=== PATIENT | female | born 1990 | race Caucasian/White ===

== ENCOUNTER 2019-09-10 15:35 | Emergency (ER) | payer MEDICAID, OTHER ==
[~2019-09-10] VITALS: Ht 154.9 cm; Wt 51.0 kg
[2019-09-10 16:18] LABS: BASOPHILS # (AUTO) 0.1 X10'3 (0-0.2); BASOPHILS % (AUTO) 0.7 % (0-1); EOSINOPHILS # (AUTO) 0.2 X10'3 (0-0.9); EOSINOPHILS % (AUTO) 2.1 % (0-6); HEMATOCRIT 43.7 % (35.0-45.0); HEMOGLOBIN 14.5 g/dl (12.0-16.0); LYMPHOCYTES # (AUTO) 1.5 X10'3 (1.1-4.8); LYMPHOCYTES % (AUTO) 19.8 % (21-51); MEAN CORPUSCULAR HGB CONC 33.2 g/dL (33.0-36.5); MEAN CORPUSCULAR VOLUME 84.4 FL (78-98); MONOCYTES # (AUTO) 0.9 X10'3 (0-0.9); MONOCYTES % (AUTO) 11.9 % (2-12); NEUTROPHILS % (AUTO) 65.5 % (42-75); PLATELET COUNT 264 X10'3 (140-440); RED BLOOD COUNT 5.18 X10'6 (4.20-5.60); RED CELL DISTRIBUTION WIDTH 16.9 % (11.5-14.5); WHITE BLOOD COUNT 7.6 X10'3 (4.5-11.0)
[2019-09-10 16:40] LABS: URINE HCG NEGATIVE (NEG)
[2019-09-10 16:42] LABS: ALANINE AMINOTRANSFERASE 22 U/L (12-78); ALKALINE PHOSPHATASE 97 IU/L (46-116); ANION GAP 9 (8-16); ASPARTATE AMINO TRANSFERASE 15 U/L (10-37); BILIRUBIN,TOTAL 0.7 MG/DL (0.1-1.0); BLOOD UREA NITROGEN 15 MG/DL (7-18); BUN/CREATININE RATIO 15.8 (6.6-38.0); CHLORIDE 103 MMOL/L (99-107); CREATININE 0.95 MG/DL (0.40-0.90); GLUCOSE 78 MG/DL (70-104); POTASSIUM 3.4 MMOL/L (3.5-5.1); SODIUM 138 MMOL/L (135-145); TOTAL CARBON DIOXIDE 25.7 MMOL/L (24-32); TOTAL PROTEIN 8.1 G/DL (6.4-8.2); eGFR 71 ML/MIN
[2019-09-10 16:43] LABS: CLARITY,URINE CLOUDY (Clear); COLOR,URINE YELLOW (Yellow); GLUCOSE, URINE NEGATIVE (Neg); KETONES,URINE TRACE mg/dl (Neg); LEUKOCYTE ESTERASE ,URINE NEGATIVE (Neg); NITRITES, URINE POSITIVE (Neg); OCCULT BLOOD,URINE NEGATIVE (Neg); PROTEIN,URINE 30 mg/dl (Neg)
[2019-09-10 16:48] LABS: UA COLLECTION TYPE STRAIGHT CATH
[2019-09-10 16:51] LABS: MUCUS STRANDS MANY /LPF (Neg); RBC,URINE NONE SEEN /HPF (0-2); SQUAMOUS EPITHELIAL CELL,UR FEW /LPF (FEW); TRANSITIONAL EPI CELLS,URINE FEW /HPF
[2019-09-10 16:52] LABS: BACTERIA,URINE 2+ /HPF (Neg); CAL OXALATE CRYSTALS 1+ /HPF (NEGATIVE); URINE AMPHETAMINE SCREEN POSITIVE (Neg); URINE BARBITUATE SCREEN NEGATIVE (Neg); URINE BENZODIAZEPINES SCREEN NEGATIVE (Neg); URINE CANNABINOID SCREEN POSITIVE (Neg); URINE COCAINE SCREEN NEGATIVE (Neg); URINE METHADONE SCREEN NEGATIVE (Neg); URINE OPIATE SCREEN NEGATIVE (Neg); URINE PHENCYCLIDINE SCREEN NEGATIVE (Neg)
[2019-09-10 16:54] LABS: ETHANOL < 0.010 GM/DL (0.0-0.010)
[2019-09-10] MEDS ORDERED: azithromycin 250mg tablet PO ONE (16:55)
--- NOTE | 2019-09-10 17:14 | NUR ---
PER [facility]: NEED MORE URINE FOR CHLAMYDIA AND IF A CULTURE IS WANTED, LAB NEEDS AN ORDER, A CULTURE IS INDICATED. SAMANTHA URIAS INFORMED
--- NOTE | 2019-09-10 17:24 | NUR ---
PACKET FAXED TO [facility]
--- NOTE | 2019-09-10 17:48 | NUR ---
Patient offered to clean herself and her hands before she ate her sandwich but patient refused. Patient is acting bizarre. Patient if filthy.
[2019-09-10] MEDS: DOXYCYCLINE 100MG CAPSULE PO SCH ×2 (18:00→20:00)
--- NOTE | 2019-09-10 19:20 | NUR ---
Pt refusing assessment. Pt completely under covers; poked head out to look at this RN then stated "Leave me alone. I don't want anything." RN offerred food/juice and pt stated "Juice." Pt's eye contact it direct when looking at speaker, but pt ignores and hides under covers more so than not. Pt is dischevled, wearing unit scrubs, needing a shower, and has a exchange consultant her forehead. Pt observed to be talking to herself intermittently, eating, then returning to sleep.
--- NOTE | 2019-09-10 21:00 | NUR ---
[facility] stated 5150 hold by [employer] invalid because they spelled the patient's last name incorrectly. [facility] unable to place a hold because the pt is refusing the interview. This RN obtained 179 from ED MD, until [employer] can be notified in the AM to rectify original 5150 issue.
--- NOTE | 2019-09-11 01:40 | NUR ---
Pt continues to sleep, changing positions intermittently. No signs of distress.
--- NOTE | 2019-09-11 02:27 | NUR ---
Pt woke abruptly to ask "What time is it?" Answered by staff, then pt immediately returned to sleep under the covers.
--- NOTE | 2019-09-11 04:02 | NUR ---
Pt sleeping, no signs of distress but pt has an intermittent cough.
--- NOTE | 2019-09-11 05:40 | NUR ---
Pt awoke to use restroom and eat more snacks. Asked what time it is then returned to sleep.
[2019-09-11 05:53] VITALS: BP 86/55
--- NOTE | 2019-09-11 06:42 | NUR ---
PT RESTING ON RIGHT SIDE RR EQUAL AND UNLABORED
--- NOTE | 2019-09-11 08:30 | NUR ---
PT WAS AWAKE SITTING ON SIDE OF BED FOR BK, ASKING IF SHE CAN GO HOME. INFORMED HER SHE NEEDS TO BE SEEN BY [facility]. PT STATES UNDERSTANDING. PT IS RESPONDING TO [facility]NAL [facility]ULI.
--- NOTE | 2019-09-11 08:34 | NUR ---
[facility] AT FOR EVAL
[2019-09-11] MEDS ORDERED: NITR100C6 PO (09:09)
[2019-09-11] MEDS: DOXYCYCLINE 100MG CAPSULE PO SCH (09:11)
== END 2019-09-11 09:14 | disposition home or self-care (01) ==
LOC: ER 15:35
DX: F20.9 Schizophrenia, unspecified (principal); N39.0 Urinary tract infection, site not specified; R51 Headache; F15.90 Other stimulant use, unspecified, uncomplicated; F12.90 Cannabis use, unspecified, uncomplicated; F10.99 Alcohol use, unspecified with unspecified alcohol-induced disorder; Z59.0 Homelessness; Y90.0 Blood alcohol level of less than 20 mg/100 ml
CPT/HCPCS: 36415; 80053; 80305; 80320; 81001; 81025; 84443; 85025; 87077; 87088; 87186; 87491; 99285